=== PATIENT | female | born 1955 | race Caucasian/White ===

== ENCOUNTER 2018-02-18 19:00 | Inpatient (IN) | payer BC ==
[~2018-02-18] VITALS: Ht 157.5 cm; Wt 89.8 kg
[2018-02-18] MEDS ORDERED: IV NORMAL SALINE 1000 ML BAG IV ONE (19:15)
[2018-02-18 19:39] LABS: BASOPHILS % (AUTO) 0.5 % (0.0-2.0); EOSINOPHILS # (AUTO) 0.2 K/uL (0.0-0.7); EOSINOPHILS % (AUTO) 2.5 % (0.0-7.0); HEMATOCRIT 26.2 % (31.2-41.9); HEMOGLOBIN 8.6 g/dL (10.9-14.3); LYMPHOCYTES # (AUTO) 1.6 K/uL (20.0-40.0); LYMPHOCYTES % (AUTO) 19.6 % (20.5-51.5); MEAN CORPUSCULAR HEMOGLOBIN 26.7 uug (24.7-32.8); MEAN CORPUSCULAR HGB CONC 33 g/dL (32.3-35.6); MEAN CORPUSCULAR VOLUME 81.8 fL (75.5-95.3); MONOCYTES # (AUTO) 0.4 K/uL (2.0-10.0); MONOCYTES % (AUTO) 4.9 % (0.0-11.0); NEUTROPHILS % (AUTO) 72.5 % (38.5-71.5); PLATELET COUNT (AUTO) 287 K/uL (179-408); WHITE BLOOD COUNT (AUTO) 8.2 K/uL (3.8-11.8)
[2018-02-18 19:40] LABS: CREATININE 0.8 mg/dL (0.6-1.3); POTASSIUM 3.8 mmol/L (3.5-5.1)
[2018-02-18] MEDS ORDERED: NAPR-1164 PO (19:40)
[2018-02-18] MEDS ORDERED: METF-494 PO (19:40)
[2018-02-18] MEDS ORDERED: DOXE10CA2 PO (19:40)
[2018-02-18] MEDS ORDERED: ALBU8.5H8 IH ×2 (19:40)
[2018-02-18] MEDS ORDERED: GABA600T2 PO (19:40)
[2018-02-18] MEDS ORDERED: ASPI-605 PO (19:40)
[2018-02-18] MEDS ORDERED: AMLO2.5T PO (19:40)
[2018-02-18] MEDS ORDERED: FLUT9.9S NS (19:40)
[2018-02-18] MEDS ORDERED: LISI1TAB11 PO (19:40)
[2018-02-18] MEDS ORDERED: FLUT1DIS28 IH (19:40)
[2018-02-18 19:47] LABS: BILIRUBIN,DIRECT 0.2 mg/dL (0.0-0.2); BILIRUBIN,TOTAL 0.5 mg/dL (0.2-1.0); TOTAL PROTEIN, SERUM 5.3 g/dL (6.4-8.2)
[2018-02-18] MEDS ORDERED: IV NS 1000 ML 1,000 ML IV PRN (20:50)
[2018-02-18] MEDS ORDERED: ONDANSETRON 4 MG/2 ML VIAL IV PRN (21:00)
[2018-02-18] MEDS ORDERED: Z GUARD REMEDY PASTE 57 GM TUBE TOP PRN (21:00)
[2018-02-18] MEDS ORDERED: HYDROCODONE/APAP 5-325MG TABLET PO PRN (21:00)
[2018-02-18] MEDS: INSULIN GLARGINE,HUM 300 UNITS/3 ML CARTRIDGE SQ SCH (21:00)
[2018-02-18] MEDS ORDERED: ZOLPIDEM 5 MG TABLET PO PRN (21:00)
[2018-02-18] MEDS ORDERED: ACETAMINOPHEN 325 MG TABLET PO PRN (21:00)
[2018-02-18] MEDS ORDERED: MAGNESIUM HYDROXIDE 30 ML LIQUID UDC PO PRN (21:00)
[2018-02-18] MEDS ORDERED: DEXTROSE 50% 50 ML DISP.SYRIN IV PRN (21:00)
[2018-02-18 21:20] VITALS: BP 117/54
[2018-02-18] MEDS ORDERED: IPRATROPIUM BROMIDE 0.5 MG/2.5 ML NEBU NEB PRN (21:45)
[2018-02-18] MEDS ORDERED: ALBUTEROL SULFATE 2.5 MG/3 ML NEBU NEB PRN (21:45)
[2018-02-18] MEDS: BLOOD SUGAR DIAGNOSTIC 1 EACH STRIP VI SCH (21:56)
[2018-02-18 22:10] VITALS: BP 103/38
[2018-02-18 22:11] VITALS: BP 82/42
[2018-02-18 22:12] VITALS: BP 72/38
[2018-02-18 22:37] LABS: *BILIRUBIN,URIN NEGATIVE (NEGATIVE); *BLOOD, URINE NEGATIVE (NEGATIVE); *COLOR,URINE YELLOW (YELLOW); *KETONES,URINE NEGATIVE (NEGATIVE); *PROTEIN,URINE NEGATIVE (NEGATIVE); *UROBILINOGEN,URINE 0.2 E.U./dl (NORMAL); LEUKOCYTE ESTERASE ,URINE 1+ (NEGATIVE); NITRITE, URINE NEGATIVE (NEGATIVE); UGLUCOSE NEGATIVE (NEGATIVE)
[2018-02-18 22:58] LABS: *CLARITY,URINE HAZY (CLEAR)
[2018-02-18 23:08] LABS: *AMPHETAMINE, URINE NEGATIVE (NEGATIVE); *BARBITURATE, URINE NEGATIVE (NEGATIVE); *CANNABINOID, URINE NEGATIVE (NEGATIVE); *COCCAINE, URINE NEGATIVE (NEGATIVE); *OPIATE, URINE NEGATIVE (NEGATIVE); *PHENCYCLIDINE SCREEN,URINE NEGATIVE (NEGATIVE)
[2018-02-18 23:21] LABS: BACTERIA,URINE MODERATE /HPF (NONE SEEN); RBC,URINE 0-3 /HPF (0-3)
[2018-02-18 23:22] LABS: MUCUS,URINE FEW /LPF (0-FEW); SQUAMOUS EPITHELIAL CELL,UR FEW /HPF (NONE SEEN)
[2018-02-18 23:41] VITALS: BP 106/49
[2018-02-18 23:45] LABS: *OCCULT BLOOD STOOL POSITIVE (NEGATIVE)
[2018-02-19] VITALS (12 sets, daily range): BP systolic 96–133; BP diastolic 42–68
[2018-02-19] MEDS: CEFTRIAXONE 1 G in IV DEXTROSE 5% 50 ML IV SCH (02:27)
[2018-02-19] MEDS ORDERED: CEFTRIAXONE 1 G VIAL ONE (02:28)
[2018-02-19] MEDS: BLOOD SUGAR DIAGNOSTIC 1 EACH STRIP VI SCH ×4 (06:30→21:02)
[2018-02-19] MEDS ORDERED: PANTOPRAZOLE SODIUM 40 MG TABLET.DR PO SCH (07:00)
[2018-02-19 07:39] LABS: BASOPHILS % (AUTO) 0.4 % (0.0-2.0); EOSINOPHILS # (AUTO) 0.2 K/uL (0.0-0.7); EOSINOPHILS % (AUTO) 1.9 % (0.0-7.0); HEMATOCRIT 21.1 % (31.2-41.9); LYMPHOCYTES # (AUTO) 2.4 K/uL (20.0-40.0); LYMPHOCYTES % (AUTO) 26.2 % (20.5-51.5); MEAN CORPUSCULAR HEMOGLOBIN 26.7 uug (24.7-32.8); MEAN CORPUSCULAR HGB CONC 33 g/dL (32.3-35.6); MEAN CORPUSCULAR VOLUME 80.5 fL (75.5-95.3); MONOCYTES # (AUTO) 0.6 K/uL (2.0-10.0); MONOCYTES % (AUTO) 6.8 % (0.0-11.0); NEUTROPHILS # (AUTO) 5.9 K/uL (1.8-8.9); NEUTROPHILS % (AUTO) 64.7 % (38.5-71.5); PLATELET COUNT (AUTO) 271 K/uL (179-408); RED BLOOD CELL COUNT(AUTO) 2.63 MIL/uL (3.63-4.92); WHITE BLOOD COUNT (AUTO) 9.1 K/uL (3.8-11.8)
[2018-02-19 07:51] LABS: CREATININE 0.6 mg/dL (0.6-1.3); MAGNESIUM 1.3 mg/dL (1.8-2.4); PHOSPHOROUS 2.3 mg/dL (2.5-4.9); POTASSIUM 3.7 mmol/L (3.5-5.1)
[2018-02-19 07:59] LABS: THYROID STIMULATING HORMONE 1.082 mIU/mL (0.358-3.740)
[2018-02-19] MEDS: NAPROXEN 500 MG TABLET PO SCH ×3 (09:00→17:00)
[2018-02-19] MEDS ORDERED: ASPIRIN EC 81 MG TABLET.DR PO SCH (09:00)
[2018-02-19] MEDS ORDERED: Medication Not On Formulary EA (Gabapentin 600 MG) PO SCH (09:00)
[2018-02-19] MEDS ORDERED: FLUTICASONE/SALMETEROL 250/50 INHALER IH SCH (09:00)
[2018-02-19] MEDS: GABAPENTIN 300 MG CAPSULE PO SCH ×3 (09:00→16:53)
[2018-02-19] MEDS: FLUTICASONE/VILANTEROL 1 EACH BLST.W.DEV INH SCH (09:22)
[2018-02-19] MEDS: MAGNESIUM SULFATE/D5W 100 ML IV SCH ×2 (09:22→10:27)
[2018-02-19] MEDS ORDERED: SODIUM PHOSPHATE MM 15 MM in IV DEXTROSE 5% 250 ML IV ONE (10:00)
[2018-02-19] MEDS: IV D5/ 0.9% NACL 1,000 ML IV PRN (18:25)
[2018-02-19] MEDS: INSULIN GLARGINE,HUM 300 UNITS/3 ML CARTRIDGE SQ SCH (21:00)
[2018-02-19] MEDS: PANTOPRAZOLE SODIUM 40 MG VIAL IV SCH (21:02)
[2018-02-19] MEDS: INSULIN REGULAR, HUMAN 300 UNIT/3 ML VIAL SQ PRN (21:06)
[2018-02-20] VITALS: BP 118/46
[2018-02-20] MEDS: CEFTRIAXONE 1 G in IV DEXTROSE 5% 50 ML IV SCH (01:43)
[2018-02-20 04:00] VITALS: BP 103/62
[2018-02-20] MEDS: BLOOD SUGAR DIAGNOSTIC 1 EACH STRIP VI SCH ×4 (06:31→20:00)
[2018-02-20] MEDS: FLUTICASONE/VILANTEROL 1 EACH BLST.W.DEV INH SCH (08:27)
[2018-02-20] MEDS: GABAPENTIN 300 MG CAPSULE PO SCH ×3 (08:27→16:46)
[2018-02-20] MEDS: PANTOPRAZOLE SODIUM 40 MG VIAL IV SCH ×2 (08:27→20:00)
[2018-02-20] MEDS: NAPROXEN 500 MG TABLET PO SCH ×2 (08:27→16:46)
[2018-02-20 11:38] LABS: BASOPHILS % (AUTO) 0.7 % (0.0-2.0); CREATININE 0.7 mg/dL (0.6-1.3); EOSINOPHILS # (AUTO) 0.2 K/uL (0.0-0.7); LYMPHOCYTES # (AUTO) 1.8 K/uL (20.0-40.0); LYMPHOCYTES % (AUTO) 31.4 % (20.5-51.5); MEAN CORPUSCULAR HEMOGLOBIN 27.6 uug (24.7-32.8); MEAN CORPUSCULAR HGB CONC 33 g/dL (32.3-35.6); MONOCYTES # (AUTO) 0.3 K/uL (2.0-10.0); MONOCYTES % (AUTO) 5.1 % (0.0-11.0); NEUTROPHILS # (AUTO) 3.4 K/uL (1.8-8.9); NEUTROPHILS % (AUTO) 59.8 % (38.5-71.5); PLATELET COUNT (AUTO) 280 K/uL (179-408); POTASSIUM 3.4 mmol/L (3.5-5.1); RED BLOOD CELL COUNT(AUTO) 3.17 MIL/uL (3.63-4.92)
[2018-02-20] MEDS: IV D5/ 0.9% NACL 1,000 ML IV PRN (12:40)
[2018-02-20] MEDS: INSULIN REGULAR, HUMAN 300 UNIT/3 ML VIAL SQ PRN (12:43)
[2018-02-20 12:51] LABS: WHITE BLOOD COUNT (AUTO) 5.7 K/uL (3.8-11.8)
[2018-02-20 12:52] LABS: HEMATOCRIT 26.6 % (31.2-41.9); HEMOGLOBIN 8.7 g/dL (10.9-14.3)
[2018-02-20] MEDS: POTASSIUM CHLORIDE 50 ML IV SCH ×4 (16:45→19:55)
[2018-02-20 20:00] VITALS: BP 109/45
[2018-02-20] MEDS: INSULIN GLARGINE,HUM 300 UNITS/3 ML CARTRIDGE SQ SCH (20:03)
[2018-02-21] VITALS (13 sets, daily range): BP systolic 99–145; BP diastolic 41–59
[2018-02-21] MEDS: CEFTRIAXONE 1 G in IV DEXTROSE 5% 50 ML IV SCH (01:29)
[2018-02-21] MEDS: IV D5/ 0.9% NACL 1,000 ML IV PRN (06:21)
[2018-02-21 06:24] LABS: BASOPHILS % (AUTO) 0.6 % (0.0-2.0); EOSINOPHILS # (AUTO) 0.3 K/uL (0.0-0.7); EOSINOPHILS % (AUTO) 5.1 % (0.0-7.0); LYMPHOCYTES # (AUTO) 2.5 K/uL (20.0-40.0); LYMPHOCYTES % (AUTO) 37.3 % (20.5-51.5); MEAN CORPUSCULAR HGB CONC 33 g/dL (32.3-35.6); MEAN CORPUSCULAR VOLUME 83.8 fL (75.5-95.3); MONOCYTES # (AUTO) 0.4 K/uL (2.0-10.0); MONOCYTES % (AUTO) 5.9 % (0.0-11.0); NEUTROPHILS # (AUTO) 3.5 K/uL (1.8-8.9); NEUTROPHILS % (AUTO) 51.1 % (38.5-71.5); PLATELET COUNT (AUTO) 246 K/uL (179-408); RED BLOOD CELL COUNT(AUTO) 2.62 MIL/uL (3.63-4.92); WHITE BLOOD COUNT (AUTO) 6.8 K/uL (3.8-11.8)
[2018-02-21] MEDS: BLOOD SUGAR DIAGNOSTIC 1 EACH STRIP VI SCH ×4 (06:30→20:51)
[2018-02-21] MEDS: SUCRALFATE 1 G TABLET PO SCH ×3 (06:30→16:43)
[2018-02-21 06:31] LABS: HEMOGLOBIN 7.3 g/dL (10.9-14.3)
[2018-02-21 06:35] LABS: CREATININE 0.7 mg/dL (0.6-1.3); MAGNESIUM 1.6 mg/dL (1.8-2.4); PHOSPHOROUS 3.2 mg/dL (2.5-4.9); POTASSIUM 3.5 mmol/L (3.5-5.1)
[2018-02-21] MEDS: FLUTICASONE/VILANTEROL 1 EACH BLST.W.DEV INH SCH (08:01)
[2018-02-21] MEDS: PANTOPRAZOLE SODIUM 40 MG VIAL IV SCH ×2 (08:02→20:51)
[2018-02-21] MEDS: GABAPENTIN 300 MG CAPSULE PO SCH ×3 (08:02→16:43)
[2018-02-21] MEDS: DULOXETINE 20 MG CAPSULE.DR PO SCH (11:09)
[2018-02-21] MEDS: MAGNESIUM SULFATE/D5W 100 ML IV SCH ×2 (13:57→18:20)
[2018-02-21] MEDS: AMOXICILLIN TRIHYDRATE 500 MG CAPSULE PO SCH ×2 (14:15→21:11)
[2018-02-21 19:42] LABS: HEMOGLOBIN 8.5 g/dL (10.9-14.3)
[2018-02-21] MEDS: INSULIN GLARGINE,HUM 300 UNITS/3 ML CARTRIDGE SQ SCH (20:56)
[2018-02-22] VITALS (7 sets, daily range): BP systolic 114–138; BP diastolic 50–62
[2018-02-22] MEDS: AMOXICILLIN TRIHYDRATE 500 MG CAPSULE PO SCH ×3 (06:10→22:19)
[2018-02-22] MEDS: IV D5/ 0.9% NACL 1,000 ML IV PRN (06:10)
[2018-02-22] MEDS: BLOOD SUGAR DIAGNOSTIC 1 EACH STRIP VI SCH ×4 (06:32→20:16)
[2018-02-22] MEDS: SUCRALFATE 1 G TABLET PO SCH ×3 (06:32→16:11)
[2018-02-22 07:07] LABS: BASOPHILS % (AUTO) 0.5 % (0.0-2.0); EOSINOPHILS # (AUTO) 0.4 K/uL (0.0-0.7); EOSINOPHILS % (AUTO) 5.8 % (0.0-7.0); HEMATOCRIT 25.3 % (31.2-41.9); HEMOGLOBIN 8.4 g/dL (10.9-14.3); LYMPHOCYTES # (AUTO) 2.1 K/uL (20.0-40.0); LYMPHOCYTES % (AUTO) 30.7 % (20.5-51.5); MEAN CORPUSCULAR HEMOGLOBIN 27.4 uug (24.7-32.8); MEAN CORPUSCULAR HGB CONC 33 g/dL (32.3-35.6); MEAN CORPUSCULAR VOLUME 82.1 fL (75.5-95.3); MONOCYTES # (AUTO) 0.4 K/uL (2.0-10.0); MONOCYTES % (AUTO) 6.3 % (0.0-11.0); NEUTROPHILS # (AUTO) 3.9 K/uL (1.8-8.9); NEUTROPHILS % (AUTO) 56.7 % (38.5-71.5); PLATELET COUNT (AUTO) 246 K/uL (179-408); RED BLOOD CELL COUNT(AUTO) 3.08 MIL/uL (3.63-4.92); WHITE BLOOD COUNT (AUTO) 6.9 K/uL (3.8-11.8)
[2018-02-22 07:11] LABS: CREATININE 0.7 mg/dL (0.6-1.3); POTASSIUM 3.6 mmol/L (3.5-5.1)
[2018-02-22] MEDS: GABAPENTIN 300 MG CAPSULE PO SCH ×3 (08:06→16:11)
[2018-02-22] MEDS: PANTOPRAZOLE SODIUM 40 MG VIAL IV SCH ×2 (08:06→20:17)
[2018-02-22] MEDS: DULOXETINE 20 MG CAPSULE.DR PO SCH (08:07)
[2018-02-22] MEDS: FLUTICASONE/VILANTEROL 1 EACH BLST.W.DEV INH SCH (08:08)
[2018-02-22] MEDS: INSULIN REGULAR, HUMAN 300 UNIT/3 ML VIAL SQ PRN (20:27)
[2018-02-22] MEDS: INSULIN GLARGINE,HUM 300 UNITS/3 ML CARTRIDGE SQ SCH (21:00)
[2018-02-23 00:24] VITALS: BP 123/52
[2018-02-23] MEDS: IV D5/ 0.9% NACL 1,000 ML IV PRN ×2 (01:49→15:59)
[2018-02-23 04:41] VITALS: BP 108/50
[2018-02-23] MEDS: AMOXICILLIN TRIHYDRATE 500 MG CAPSULE PO SCH ×3 (05:11→21:33)
[2018-02-23 06:12] LABS: BASOPHILS # (AUTO) 0.1 K/uL (0.0-8.0); BASOPHILS % (AUTO) 0.7 % (0.0-2.0); EOSINOPHILS # (AUTO) 0.5 K/uL (0.0-0.7); EOSINOPHILS % (AUTO) 6.1 % (0.0-7.0); HEMATOCRIT 25.4 % (31.2-41.9); HEMOGLOBIN 8.4 g/dL (10.9-14.3); LYMPHOCYTES # (AUTO) 2.3 K/uL (20.0-40.0); LYMPHOCYTES % (AUTO) 29.2 % (20.5-51.5); MEAN CORPUSCULAR HEMOGLOBIN 27.4 uug (24.7-32.8); MEAN CORPUSCULAR HGB CONC 33 g/dL (32.3-35.6); MEAN CORPUSCULAR VOLUME 82.6 fL (75.5-95.3); MONOCYTES # (AUTO) 0.5 K/uL (2.0-10.0); MONOCYTES % (AUTO) 6.1 % (0.0-11.0); NEUTROPHILS # (AUTO) 4.5 K/uL (1.8-8.9); NEUTROPHILS % (AUTO) 57.9 % (38.5-71.5); PLATELET COUNT (AUTO) 263 K/uL (179-408); RED BLOOD CELL COUNT(AUTO) 3.07 MIL/uL (3.63-4.92); WHITE BLOOD COUNT (AUTO) 7.8 K/uL (3.8-11.8)
[2018-02-23 06:25] LABS: CREATININE 0.7 mg/dL (0.6-1.3); MAGNESIUM 1.7 mg/dL (1.8-2.4); PHOSPHOROUS 3.4 mg/dL (2.5-4.9); POTASSIUM 3.4 mmol/L (3.5-5.1)
[2018-02-23] MEDS: SUCRALFATE 1 G TABLET PO SCH ×3 (06:31→16:51)
[2018-02-23] MEDS: BLOOD SUGAR DIAGNOSTIC 1 EACH STRIP VI SCH ×4 (06:35→20:19)
[2018-02-23] MEDS: DULOXETINE 20 MG CAPSULE.DR PO SCH (08:38)
[2018-02-23] MEDS: GABAPENTIN 300 MG CAPSULE PO SCH ×3 (08:38→16:51)
[2018-02-23] MEDS: PANTOPRAZOLE SODIUM 40 MG VIAL IV SCH ×2 (08:38→20:14)
[2018-02-23] MEDS: FLUTICASONE/VILANTEROL 1 EACH BLST.W.DEV INH SCH (08:40)
[2018-02-23 11:13] VITALS: BP 109/52
[2018-02-23] MEDS: INSULIN REGULAR, HUMAN 300 UNIT/3 ML VIAL SQ PRN ×3 (12:11→20:28)
[2018-02-23] MEDS ORDERED: POTASSIUM CHLORIDE 20 MEQ TAB.PRT.SR PO ONE (12:15)
[2018-02-23] MEDS ORDERED: MAGNESIUM OXIDE 400 MG TABLET PO ONE (12:15)
[2018-02-23 16:00] VITALS: BP_SYST 115; BP_SYST 116; BP_SYST 127; BP_DIAS 53; BP_DIAS 56; BP_DIAS 59
[2018-02-23 19:10] VITALS: BP 110/51
[2018-02-23] MEDS: DOCUSATE SODIUM 100 MG CAPSULE PO SCH (20:14)
[2018-02-23] MEDS: INSULIN GLARGINE,HUM 300 UNITS/3 ML CARTRIDGE SQ SCH (20:32)
[2018-02-23 22:00] VITALS: BP_SYST 130; BP_SYST 134; BP_SYST 140; BP_DIAS 57; BP_DIAS 59; BP_DIAS 62
[2018-02-24] VITALS (8 sets, daily range): BP systolic 103–151; BP diastolic 45–70
[2018-02-24] MEDS: AMOXICILLIN TRIHYDRATE 500 MG CAPSULE PO SCH ×3 (05:21→21:12)
[2018-02-24] MEDS: IV D5/ 0.9% NACL 1,000 ML IV PRN (05:21)
[2018-02-24] MEDS: SUCRALFATE 1 G TABLET PO SCH ×3 (06:16→16:57)
[2018-02-24] MEDS: BLOOD SUGAR DIAGNOSTIC 1 EACH STRIP VI SCH ×4 (06:17→20:36)
[2018-02-24 06:33] LABS: CREATININE 0.7 mg/dL (0.6-1.3); MAGNESIUM 1.6 mg/dL (1.8-2.4); POTASSIUM 3.5 mmol/L (3.5-5.1)
[2018-02-24] MEDS: DULOXETINE 20 MG CAPSULE.DR PO SCH (08:26)
[2018-02-24] MEDS: PANTOPRAZOLE SODIUM 40 MG VIAL IV SCH ×2 (08:26→20:33)
[2018-02-24] MEDS: FLUTICASONE/VILANTEROL 1 EACH BLST.W.DEV INH SCH (08:26)
[2018-02-24] MEDS: GABAPENTIN 300 MG CAPSULE PO SCH ×3 (08:26→16:57)
[2018-02-24] MEDS: DOCUSATE SODIUM 100 MG CAPSULE PO SCH ×2 (08:26→20:33)
[2018-02-24] MEDS: INSULIN REGULAR, HUMAN 300 UNIT/3 ML VIAL SQ PRN ×2 (08:27→20:38)
[2018-02-24] MEDS: MAGNESIUM SULFATE/D5W 100 ML IV SCH ×2 (10:32→11:29)
[2018-02-24] MEDS: INSULIN GLARGINE,HUM 300 UNITS/3 ML CARTRIDGE SQ SCH (20:38)
[2018-02-25] MEDS: IV D5/ 0.9% NACL 1,000 ML IV PRN ×2 (00:51→14:24)
[2018-02-25 03:38] VITALS: BP 120/50
[2018-02-25] MEDS: AMOXICILLIN TRIHYDRATE 500 MG CAPSULE PO SCH ×2 (06:30→14:24)
[2018-02-25] MEDS: SUCRALFATE 1 G TABLET PO SCH ×2 (06:30→12:13)
[2018-02-25] MEDS: BLOOD SUGAR DIAGNOSTIC 1 EACH STRIP VI SCH ×2 (06:33→12:13)
[2018-02-25] MEDS: PANTOPRAZOLE SODIUM 40 MG VIAL IV SCH (08:55)
[2018-02-25] MEDS: DOCUSATE SODIUM 100 MG CAPSULE PO SCH (08:56)
[2018-02-25] MEDS: DULOXETINE 20 MG CAPSULE.DR PO SCH (08:56)
[2018-02-25] MEDS: GABAPENTIN 300 MG CAPSULE PO SCH ×2 (08:56→12:12)
[2018-02-25] MEDS: FLUTICASONE/VILANTEROL 1 EACH BLST.W.DEV INH SCH (08:58)
[2018-02-25 11:49] VITALS: BP 110/48
[2018-02-25] MEDS: INSULIN REGULAR, HUMAN 300 UNIT/3 ML VIAL SQ PRN (12:14)
== END 2018-02-25 15:20 | disposition short-term general hospital (02) | DRG 871 ==
LOC: ER 19:02 → TELE 20:52
PROVIDERS: ADMIT Hospitalist; ATTEND Hospitalist
PROC: 30233N1 Transfusion of Nonautologous Red Blood Cells into Peripheral Vein, Percutaneous Approach (ICD-10-PCS; principal; 2018-02-19)
DX: A41.9 Sepsis, unspecified organism (principal); N17.0 Acute kidney failure with tubular necrosis; K92.2 Gastrointestinal hemorrhage, unspecified; N39.0 Urinary tract infection, site not specified; E44.0 Moderate protein-calorie malnutrition; E87.2 Acidosis; G90.8 Other disorders of autonomic nervous system; R65.20 Severe sepsis without septic shock; I35.0 Nonrheumatic aortic (valve) stenosis; Z68.36 Body mass index [BMI] 36.0-36.9, adult; E86.0 Dehydration; E83.42 Hypomagnesemia; E83.39 Other disorders of phosphorus metabolism; E11.65 Type 2 diabetes mellitus with hyperglycemia; Z79.84 Long term (current) use of oral hypoglycemic drugs; E87.6 Hypokalemia; J45.909 Unspecified asthma, uncomplicated; Q21.8 Other congenital malformations of cardiac septa; I11.9 Hypertensive heart disease without heart failure; F32.9 Major depressive disorder, single episode, unspecified; Z98.82 Breast implant status; Z87.891 Personal history of nicotine dependence; I95.2 Hypotension due to drugs; T43.015A Adverse effect of tricyclic antidepressants, initial encounter; Y92.009 Unspecified place in unspecified non-institutional (private) residence as the place of occurrence of the external cause; D50.0 Iron deficiency anemia secondary to blood loss (chronic)
CPT/HCPCS: 36415; 70030-TC; 71045; 80307; 82306; 83550; 83605; 83735; 84100; 84443; 85018; 85025; 85730; 86850; 86900; 86901; 86920; 87040; 87086; 93005; 93307; 93880; A4663; A9560; C9113; J0696; J1815; J2405; J3475; J3480; J3490; J7030; J7040; J7042; J7050; J7060; P9016-BL; P9021